=== PATIENT | female | born 1955 | race Caucasian/White ===

== ENCOUNTER 2018-11-06 19:01 | Inpatient (IN) | payer OTHER ==
[~2018-11-06] VITALS: Ht 167.6 cm; Wt 74.0 kg
[2018-11-06 19:07] VITALS: Ht 167.6 cm; Wt 74.0 kg
[2018-11-06 19:26] LABS: UA SPECIFIC GRAVITY <=1.005 (1.005-1.035); microscopic required? YES; urine erythrocyte NEGATIVE (NEGATIVE)
[2018-11-06 19:36] LABS: AMPHETAMINE QUAL UR NONE DETECTED (See below)
[2018-11-06 20:55] LABS: BASOPHIL % 0.7 % (0-2); PLATELET COUNT 251 x10^3mcL (130-400); RED CELL DISTRIBUTION WIDTH 13.9 % (11.5-14.5)
[2018-11-06 20:56] LABS: CALCIUM 8.4 mg/dL (8.5-10.1); CARBON DIOXIDE 29.8 mmol/L (21-32); CHLORIDE SERUM 105 mmol/L (98-107); CREATININE SERUM 0.8 mg/dL (0.6-1.0); GFR1 > 60 mL/min; GLUCOSE SERUM 84 mg/dL (74-106); SODIUM SERUM 142 mmol/L (136-145)
[2018-11-06 21:00] LABS: ALBUMIN 3.6 g/dL (3.4-5.0); ALKALINE PHOSPHATASE 70 U/L (46-116); ALT/SGPT 40 U/L (14-59); AST/SGOT 48 U/L (15-37); BILIRUBIN TOTAL 0.21 mg/dL (0.20-1.00); TOTAL PROTEIN, SERUM 7.8 g/dL (6.4-8.2)
[2018-11-07 15:59] VITALS: BP 142/96
[2018-11-07 20:13] VITALS: BP 135/77
[2018-11-08 06:06] VITALS: BP 130/91
[2018-11-08 09:33] VITALS: BP 126/83
[2018-11-08 13:32] VITALS: BP 126/83
[2018-11-08 17:20] VITALS: BP 121/69
[2018-11-08 20:28] VITALS: BP 131/84
[2018-11-09 05:41] VITALS: BP 129/76
[2018-11-09 08:33] VITALS: BP 119/86
[2018-11-09 12:55] VITALS: BP 119/86
== END 2018-11-09 14:20 | disposition home or self-care (01) | DRG 775 ==
LOC: ED 19:01 → MU 11-07 14:09
PROVIDERS: Emergency Medicine
DX: F10.129 Alcohol abuse with intoxication, unspecified (principal); R45.851 Suicidal ideations; F90.9 Attention-deficit hyperactivity disorder, unspecified type; F43.23 Adjustment disorder with mixed anxiety and depressed mood; Y90.0 Blood alcohol level of less than 20 mg/100 ml; Z59.0 Homelessness
CPT/HCPCS: G0480; J1630; J2060; J3490